=== PATIENT | female | born 1985 | race Caucasian/White ===

== ENCOUNTER 2021-11-09 09:08 | Outpatient (CLI) | payer OTHER ==
[~2021-11-09 09:08] MED LIST: COLACE 100MG C100 MG PO; FEOSOL325 MG PO; FERROUS SULFAT325 MG PO; IBUPROFEN600 MG PO; LORTAB 5-325 M1 EACH PO; PRENATABS FA T1 EACH PO; ZOLOFT25 MG PO
[2021-11-09 10:57] LABS: HEMOGLOBIN 11.1 gm/dl (12.3-15.3); RED BLOOD COUNT 4.32 M/UL (4.00-5.10); WHITE BLOOD COUNT 11.5 K/UL (4.5-11.0)
== END 2021-11-09 10:40 | disposition home or self-care (01) ==
LOC: GENOP 09:08
PROVIDERS: Obstetrics & Gynecology
DX: Z01.812 Encounter for preprocedural laboratory examination (principal)
CPT/HCPCS: 36415; 81001; 85025

== ENCOUNTER 2021-11-13 05:51 | Inpatient (IN) | payer OTHER ==
[~2021-11-13] VITALS: Ht 149.9 cm; Wt 73.0 kg
[2021-11-13] MEDS ORDERED: PRENATABS FA T1 EACH PO (06:47)
[2021-11-13] MEDS ORDERED: IBUPROFEN600 MG PO (08:09)
[2021-11-13] MEDS ORDERED: HYDROCODON-ACE1 EAC6 PO (08:09)
[2021-11-13] MEDS ORDERED: COLACE 100MG C100 MG PO (08:09)
[2021-11-14 04:15] LABS: HEMOGLOBIN 8.4 gm/dl (12.3-15.3)
[2021-11-14] MEDS ORDERED: ZOLOFT50 MG PO (09:17)
[2021-11-14] MEDS ORDERED: FERROUS SULFAT325 M2 PO (09:17)
== END 2021-11-14 12:57 | disposition home or self-care (01) | DRG 787 ==
LOC: OB 05:51
PROVIDERS: ADMIT Obstetrics & Gynecology
PROC: 4A1HXCZ Monitoring of Products of Conception, Cardiac Rate, External Approach (ICD-10-PCS; 2021-11-13)
PROC: 10D00Z0 Extraction of Products of Conception, High, Open Approach (ICD-10-PCS; principal; 2021-11-13 08:45)
DX: O34.211 Maternal care for low transverse scar from previous cesarean delivery (principal); O41.03X0 Oligohydramnios, third trimester, not applicable or unspecified; Z3A.37 37 weeks gestation of pregnancy; Z37.0 Single live birth; Z20.822 Contact with and (suspected) exposure to COVID-19; Z82.49 Family history of ischemic heart disease and other diseases of the circulatory system; Z80.9 Family history of malignant neoplasm, unspecified; N85.8 Other specified noninflammatory disorders of uterus; O35.8XX0 Maternal care for other (suspected) fetal abnormality and damage, not applicable or unspecified
CPT/HCPCS: 36415; 81001; 85014; 85018; C9113; J0690; J1650; J1885; J2210; J2274; J2370; J2405; J2590; J3010; J7120; U0002